=== PATIENT | female | born 1985 | race Caucasian/White ===

== ENCOUNTER 2016-11-25 13:19 | Observation (INO) | payer OTHER ==
[~2016-11-25] VITALS: Ht 165.1 cm; Wt 138.0 kg
[~2016-11-25 13:19] MED LIST: ACET325T14 PO; ARIP2TAB PO; BIRTH CONTROL PILL PO; CIPR500T87 PO; DIAZ5TAB PO; DISU250T2 PO; FLUO20CA19 PO; HYDR-3138 PO; METO10TA82 PO; Metronidazole PO; NAPR500T3 PO; ONDA4TAB7 PO; OXYC1TAB8 PO; PNV11TAB5 PO; PROM25TA10 PO; RANI150T8 PO; TRAZ150T68 PO; TRAZ50TA18 PO; VENL150C PO; VENL37.52 PO; ZOLP-413 PO
[2016-11-25 13:57] LABS: DAU SCREEN DISCLAIMER
[2016-11-25] MEDS ORDERED: LORA-445 PO (14:13)
[2016-11-25 14:34] LABS: BLOOD UREA NITROGEN 11 mg/dL (7-18)
[2016-11-25 14:50] LABS: ACETAMINOPHEN < 2 mcg/mL (10-30)
[2016-11-25 16:00] VITALS: BP 117/82
[2016-11-25] MEDS ORDERED: HALOPERIDOL 5 MG/ML IM PRN (16:00)
[2016-11-25] MEDS ORDERED: ACETAMINOPHEN 500 MG TABLET PO PRN (17:30)
[2016-11-25] MEDS ORDERED: TRAZODONE 50MG TABLET PO SCH (21:00)
[2016-11-26] MEDS ORDERED: FLUOXETINE 20 MG CAPSULE PO SCH ×2 (09:00)
== END 2016-11-25 19:52 ==
LOC: ED 15:30 → INTOOBSV 15:31 → EDIP 15:31 → SUATTDRO 15:35 → ED 15:50 → 3E 16:35
PROVIDERS: ADMIT Internal Medicine; ATTEND Internal Medicine
DX: S61.511A Laceration without foreign body of right wrist, initial encounter (principal); F32.9 Major depressive disorder, single episode, unspecified; D72.829 Elevated white blood cell count, unspecified; E66.01 Morbid (severe) obesity due to excess calories; Z79.899 Other long term (current) drug therapy; Z91.14 Patient's other noncompliance with medication regimen; X78.9XXA Intentional self-harm by unspecified sharp object, initial encounter; Y93.89 Activity, other specified; Y92.89 Other specified places as the place of occurrence of the external cause; Y99.8 Other external cause status
CPT/HCPCS: 36415; 71010; 80048; 80307; 80329; 81003; 82040; 85025; 93005; 99285; G0378; G0480

== ENCOUNTER 2017-03-28 05:22 | Emergency (ER) | payer OTHER ==
[~2017-03-28] VITALS: Ht 165.1 cm; Wt 140.3 kg
[~2017-03-28 05:22] MED LIST changes: -ARIP2TAB PO; +ARIP2TAB2 PO; -HYDR-3138 PO; +HYDR-3237 PO; +LORA-445 PO; -NAPR500T3 PO; +NAPR500T4 PO; +TRAZ150T62 PO; -TRAZ150T68 PO
[2017-03-28] MEDS ORDERED: DIAZEPAM 5 MG TABLET ONE (05:49)
[2017-03-28] MEDS ORDERED: OXYcodone/APAP 10/325MG TABLET ONE (05:49)
[2017-03-28] MEDS ORDERED: OXYcodone/APAP 10/325MG TABLET PO ONE (06:00)
[2017-03-28] MEDS ORDERED: DIAZEPAM 5 MG TABLET PO ONE (06:00)
[2017-03-28 06:45] VITALS: BP 117/66
== END 2017-03-28 08:50 | disposition home or self-care (01) ==
LOC: ED 08:16
DX: S16.1XXA Strain of muscle, fascia and tendon at neck level, initial encounter (principal); Z88.6 Allergy status to analgesic agent; Z90.49 Acquired absence of other specified parts of digestive tract; V89.2XXA Person injured in unspecified motor-vehicle accident, traffic, initial encounter; Y93.89 Activity, other specified; Y99.8 Other external cause status; Y92.410 Unspecified street and highway as the place of occurrence of the external cause
CPT/HCPCS: 70450; 72125; 99284

== ENCOUNTER 2017-07-27 17:35 | Emergency (ER) | payer OTHER ==
[~2017-07-27] VITALS: Ht 165.1 cm; Wt 138.3 kg
[~2017-07-27 17:35] MED LIST changes: +NAPR-685 PO; -NAPR500T4 PO
[2017-07-27 18:14] LABS: BASOPHILS # (AUTO) 0.11 x10^3/uL (0-0.1); BASOPHILS % (AUTO) 1 % (0-1); EOSINOPHILS # (AUTO) 0.25 x10^3/uL (0-0.4); EOSINOPHILS % (AUTO) 2 % (1-7); LYMPHOCYTES % (AUTO) 24 % (22-44); MD NO; MEAN CORPUSCULAR HEMOGLOBIN 25.2 pg (27.0-34.8); MEAN CORPUSCULAR VOLUME 76.4 fL (80-100); MEAN PLATELET VOLUME 8.5 fL (7.4-10.4); MONOCYTES # (AUTO) 0.74 x10^3/uL (0.2-0.8); MONOCYTES % (AUTO) 7 % (2-9); NEUTROPHILS # (AUTO) 7.05 x10^3/uL (1.8-6.8); NEUTROPHILS % (AUTO) 66 % (42-75); PLATELET COUNT 328 x10^3/uL (130-400); RED BLOOD COUNT 4.67 x10^6/uL (3.82-5.3); RED CELL DISTRIBUTION WIDTH 17.8 % (9.6-15.2)
[2017-07-27 18:17] LABS: ALANINE AMINOTRANSFERASE 22 U/L (12-78); ALBUMIN 3.6 g/dL (3.4-5.0); ANION GAP 10 mmol/L (5-15); CALCIUM 9.4 mg/dL (8.5-10.1); CHLORIDE 105 mmol/L (98-107); CREATININE 1.23 mg/dL (0.55-1.02)
[2017-07-27 18:20] LABS: ALKALINE PHOSPHATASE 76 U/L (45-117); BILIRUBIN,TOTAL 0.2 mg/dL (0.2-1.0)
[2017-07-27] MEDS ORDERED: BUPR150T73 PO (19:05)
[2017-07-27] MEDS ORDERED: RANI75TA12 PO (19:05)
[2017-07-27] MEDS ORDERED: LURA40TA PO (19:05)
[2017-07-27 19:07] VITALS: BP 125/67
[2017-07-27 19:19] LABS: MICROSCOPIC AUTO
[2017-07-27 19:20] LABS: CULTURE INDICATED? YES
[2017-07-27] MEDS ORDERED: NITROFURANTOIN (MACROBID) 100 MG CAPSULE ONE (19:53)
[2017-07-27] MEDS ORDERED: NITROFURANTOIN (MACROBID) 100 MG CAPSULE PO ONE (20:00)
== END 2017-07-27 21:11 | disposition home or self-care (01) ==
LOC: ED 20:45
DX: N30.90 Cystitis, unspecified without hematuria (principal); F31.9 Bipolar disorder, unspecified; Z90.710 Acquired absence of both cervix and uterus; Z88.6 Allergy status to analgesic agent
CPT/HCPCS: 36415; 76700; 80053; 81001; 83690; 85025; 87086; 99285

== ENCOUNTER 2017-08-17 18:13 | Emergency (ER) | payer OTHER ==
[~2017-08-17] VITALS: Ht 165.1 cm; Wt 138.3 kg
[~2017-08-17 18:13] MED LIST changes: +BUPR150T73 PO; +LURA40TA PO; +RANI150T23 PO; -RANI150T8 PO; +RANI75TA12 PO; +[UNRECOGNIZED DRUG - OTHER] PO
[2017-08-17 19:05] LABS: BASOPHILS # (AUTO) 0.05 x10^3/uL (0-0.1); BASOPHILS % (AUTO) 1 % (0-1); EOSINOPHILS # (AUTO) 0.09 x10^3/uL (0-0.4); EOSINOPHILS % (AUTO) 1 % (1-7); LYMPHOCYTES # (AUTO) 2.69 x10^3/uL (1-3.4); LYMPHOCYTES % (AUTO) 27 % (22-44); MD NO; MEAN CORPUSCULAR HEMOGLOBIN 25.4 pg (27.0-34.8); MEAN CORPUSCULAR VOLUME 76.8 fL (80-100); MEAN PLATELET VOLUME 8.5 fL (7.4-10.4); MONOCYTES # (AUTO) 0.73 x10^3/uL (0.2-0.8); MONOCYTES % (AUTO) 7 % (2-9); NEUTROPHILS # (AUTO) 6.31 x10^3/uL (1.8-6.8); NEUTROPHILS % (AUTO) 64 % (42-75); PLATELET COUNT 311 x10^3/uL (130-400); RED BLOOD COUNT 4.75 x10^6/uL (3.82-5.3); RED CELL DISTRIBUTION WIDTH 18.2 % (9.6-15.2)
[2017-08-17 19:10] LABS: ALBUMIN 3.7 g/dL (3.4-5.0); ANION GAP 8 mmol/L (5-15); CALCIUM 9.3 mg/dL (8.5-10.1); CHLORIDE 107 mmol/L (98-107)
[2017-08-17 19:14] LABS: ALANINE AMINOTRANSFERASE 25 U/L (12-78); ALKALINE PHOSPHATASE 72 U/L (45-117); BILIRUBIN,TOTAL 0.2 mg/dL (0.2-1.0); CREATININE 1.09 mg/dL (0.55-1.02); TOTAL PROTEIN 7.7 g/dL (6.4-8.2)
[2017-08-17 19:25] LABS: CULTURE INDICATED? YES; MICROSCOPIC INDICATED
[2017-08-17 21:43] VITALS: BP 1/82
== END 2017-08-17 21:46 | disposition home or self-care (01) ==
LOC: ED 21:40
DX: N30.00 Acute cystitis without hematuria (principal); F31.9 Bipolar disorder, unspecified; F43.10 Post-traumatic stress disorder, unspecified; Z90.710 Acquired absence of both cervix and uterus
CPT/HCPCS: 36415; 74176; 80053; 81001; 85025; 87086; 99285

== ENCOUNTER 2017-09-27 06:56 | Day surgery (SDC) | payer OTHER ==
[2017-09-26 13:57] VITALS: BP 121/82
[~2017-09-27] VITALS: Ht 165.1 cm; Wt 135.0 kg
[~2017-09-27 06:56] MED LIST changes: +CEPH-376 PO; +ZALE10CA PO
[2017-09-27] MEDS ORDERED: LACTATED RINGERS 1,000 ML IV SCH (07:28)
[2017-09-27 07:30] VITALS: BP 121/82
[2017-09-27] MEDS ORDERED: LIDOCAINE-MPF 1%, 2ML INFIL ONE (07:30)
[2017-09-27] MEDS ORDERED: MIDAZOLAM 1 MG/ML, 2ML ONE (09:18)
== END 2017-09-27 11:15 ==
LOC: OUT 06:56
PROVIDERS: ATTEND Internal Medicine Gastroenterology
DX: K29.50 Unspecified chronic gastritis without bleeding (principal); K63.5 Polyp of colon; K57.30 Diverticulosis of large intestine without perforation or abscess without bleeding; K64.8 Other hemorrhoids; F41.9 Anxiety disorder, unspecified; F32.9 Major depressive disorder, single episode, unspecified; E66.01 Morbid (severe) obesity due to excess calories; Z68.42 Body mass index [BMI] 45.0-49.9, adult; Z79.82 Long term (current) use of aspirin; Z91.018 Allergy to other foods; Z90.710 Acquired absence of both cervix and uterus; Z72.89 Other problems related to lifestyle
CPT/HCPCS: 43239; 45385; 88305; J2250; J3490; J7120

== ENCOUNTER 2017-12-27 15:37 | Emergency (ER) | payer OTHER ==
[~2017-12-27] VITALS: Ht 165.1 cm; Wt 137.0 kg
[~2017-12-27 15:37] MED LIST changes: +TRAZ-136 PO; -TRAZ50TA18 PO
[2017-12-27] MEDS ORDERED: BUPR-86 PO (15:47)
[2017-12-27] MEDS ORDERED: LURA40TA PO (15:48)
[2017-12-27 16:28] LABS: BASOPHILS # (AUTO) 0.01 x10^3/uL (0-0.1); BASOPHILS % (AUTO) 0 % (0-1); EOSINOPHILS # (AUTO) 0.08 x10^3/uL (0-0.4); EOSINOPHILS % (AUTO) 1 % (1-7); LYMPHOCYTES # (AUTO) 2.17 x10^3/uL (1-3.4); LYMPHOCYTES % (AUTO) 24 % (22-44); MD NO; MEAN CORPUSCULAR HEMOGLOBIN 26.4 pg (27.0-34.8); MEAN CORPUSCULAR HGB CONC 33.4 g/dL (32.4-35.8); MEAN PLATELET VOLUME 8.4 fL (7.4-10.4); MONOCYTES # (AUTO) 0.57 x10^3/uL (0.2-0.8); MONOCYTES % (AUTO) 6 % (2-9); NEUTROPHILS # (AUTO) 6.38 x10^3/uL (1.8-6.8); NEUTROPHILS % (AUTO) 69 % (42-75); PLATELET COUNT 268 x10^3/uL (130-400); RED BLOOD COUNT 4.47 x10^6/uL (3.82-5.3); RED CELL DISTRIBUTION WIDTH 16.7 % (9.6-15.2)
[2017-12-27] MEDS ORDERED: KETOROLAC 30 MG/1 ML ONE (16:29)
[2017-12-27] MEDS ORDERED: MAALOX/HYOSCYAMINE/LIDOCAINE 45 ML BTL ONE (16:29)
[2017-12-27] MEDS ORDERED: KETOROLAC 30 MG/1 ML IVPush ONE (16:30)
[2017-12-27] MEDS ORDERED: MAALOX/HYOSCYAMINE/LIDOCAINE 45 ML BTL PO ONE (16:30)
[2017-12-27 16:37] LABS: PROTHROMBIN TIME 10.4 Seconds (9.6-11.5)
[2017-12-27 16:39] LABS: ALANINE AMINOTRANSFERASE 20 U/L (12-78); ALBUMIN 3.5 g/dL (3.4-5.0); ANION GAP 4 mmol/L (5-15); CALCIUM 9.4 mg/dL (8.5-10.1); CHLORIDE 106 mmol/L (98-107); CREATININE 1.07 mg/dL (0.55-1.02)
[2017-12-27 16:43] LABS: ALKALINE PHOSPHATASE 70 U/L (45-117); BILIRUBIN,TOTAL 0.2 mg/dL (0.2-1.0); TOTAL PROTEIN 7.5 g/dL (6.4-8.2); TROPONIN I < 0.015 ng/mL (0.000-0.045)
[2017-12-27 18:28] VITALS: BP 120/68
== END 2017-12-27 18:35 | disposition home or self-care (01) ==
LOC: ED 18:05
DX: R07.89 Other chest pain (principal); F41.1 Generalized anxiety disorder; F31.9 Bipolar disorder, unspecified; Z90.710 Acquired absence of both cervix and uterus; Z90.721 Acquired absence of ovaries, unilateral
CPT/HCPCS: 36415; 71045; 80053; 83880; 84484; 85025; 85610; 93005; 96374; 99285; J1885

== ENCOUNTER 2018-01-28 21:10 | Emergency (ER) | payer OTHER ==
[~2018-01-28] VITALS: Ht 165.1 cm; Wt 134.3 kg
[~2018-01-28 21:10] MED LIST changes: +BUPR-86 PO
[2018-01-28 21:13] VITALS: BP 120/82
[2018-01-28 21:48] LABS: BASOPHILS # (AUTO) 0.03 x10^3/uL (0-0.1); BASOPHILS % (AUTO) 0 % (0-1); EOSINOPHILS # (AUTO) 0.08 x10^3/uL (0-0.4); EOSINOPHILS % (AUTO) 1 % (1-7); LYMPHOCYTES # (AUTO) 2.58 x10^3/uL (1-3.4); LYMPHOCYTES % (AUTO) 28 % (22-44); MD NO; MEAN CORPUSCULAR HGB CONC 33.2 g/dL (32.4-35.8); MEAN CORPUSCULAR VOLUME 78.2 fL (80-100); MEAN PLATELET VOLUME 8.1 fL (7.4-10.4); MONOCYTES # (AUTO) 0.44 x10^3/uL (0.2-0.8); MONOCYTES % (AUTO) 5 % (2-9); NEUTROPHILS # (AUTO) 6.13 x10^3/uL (1.8-6.8); NEUTROPHILS % (AUTO) 66 % (42-75); PLATELET COUNT 297 x10^3/uL (130-400); RED BLOOD COUNT 4.43 x10^6/uL (3.82-5.3); RED CELL DISTRIBUTION WIDTH 16.6 % (9.6-15.2)
[2018-01-28] MEDS ORDERED: ONDANSETRON 2MG/ML, 2ML IVPush ONE (22:00)
[2018-01-28] MEDS ORDERED: SODIUM CHLORIDE 0.9% 1,000ML IVBOLUS ONE (22:00)
[2018-01-28] MEDS ORDERED: MAALOX/HYOSCYAMINE/LIDOCAINE 45 ML BTL PO ONE (22:00)
[2018-01-28 22:01] LABS: ALANINE AMINOTRANSFERASE 20 U/L (12-78); ALBUMIN 3.3 g/dL (3.4-5.0); ANION GAP 5 mmol/L (5-15); CHLORIDE 106 mmol/L (98-107); CREATININE 0.94 mg/dL (0.55-1.02)
[2018-01-28 22:06] LABS: ALKALINE PHOSPHATASE 74 U/L (45-117); BILIRUBIN,TOTAL 0.2 mg/dL (0.2-1.0); TOTAL PROTEIN 7.5 g/dL (6.4-8.2)
[2018-01-28] MEDS ORDERED: MAALOX/HYOSCYAMINE/LIDOCAINE 45 ML BTL ONE (22:15)
[2018-01-28] MEDS ORDERED: ONDANSETRON 2MG/ML, 2ML ONE (22:16)
[2018-01-28 22:41] LABS: CULTURE INDICATED? YES; MICROSCOPIC INDICATED
== END 2018-01-28 23:52 | disposition home or self-care (01) ==
LOC: ED 23:15
DX: J35.1 Hypertrophy of tonsils (principal); R11.2 Nausea with vomiting, unspecified; E86.0 Dehydration; F31.9 Bipolar disorder, unspecified
CPT/HCPCS: 36415; 80053; 81001; 83690; 84703; 85025; 87077; 87086; 96374; 99284; J2405; J7030; 87186

== ENCOUNTER 2018-02-02 11:18 | Emergency (ER) | payer OTHER ==
[~2018-02-02] VITALS: Ht 165.1 cm; Wt 131.5 kg
[2018-02-02] MEDS ORDERED: HYDROcodone/APAP 5/325 TABLET PO ONE (11:30)
[2018-02-02] MEDS ORDERED: HYDROcodone/APAP 5/325 TABLET ONE (11:36)
[2018-02-02 12:11] LABS: BASOPHILS # (AUTO) 0.03 x10^3/uL (0-0.1); BASOPHILS % (AUTO) 0 % (0-1); EOSINOPHILS # (AUTO) 0.04 x10^3/uL (0-0.4); EOSINOPHILS % (AUTO) 1 % (1-7); LYMPHOCYTES # (AUTO) 2.03 x10^3/uL (1-3.4); LYMPHOCYTES % (AUTO) 25 % (22-44); MD NO; MEAN CORPUSCULAR HEMOGLOBIN 25.8 pg (27.0-34.8); MEAN CORPUSCULAR HGB CONC 32.6 g/dL (32.4-35.8); MEAN CORPUSCULAR VOLUME 79.1 fL (80-100); MEAN PLATELET VOLUME 8.6 fL (7.4-10.4); MONOCYTES # (AUTO) 0.45 x10^3/uL (0.2-0.8); MONOCYTES % (AUTO) 6 % (2-9); NEUTROPHILS # (AUTO) 5.46 x10^3/uL (1.8-6.8); NEUTROPHILS % (AUTO) 68 % (42-75); PLATELET COUNT 298 x10^3/uL (130-400); RED BLOOD COUNT 4.66 x10^6/uL (3.82-5.3); RED CELL DISTRIBUTION WIDTH 16.8 % (9.6-15.2)
[2018-02-02 12:24] LABS: ALBUMIN 3.3 g/dL (3.4-5.0); ANION GAP 8 mmol/L (5-15); CALCIUM 9.1 mg/dL (8.5-10.1); CHLORIDE 108 mmol/L (98-107)
[2018-02-02 12:26] LABS: CREATININE 0.96 mg/dL (0.55-1.02)
[2018-02-02 13:00] VITALS: BP 107/65
== END 2018-02-02 14:27 | disposition home or self-care (01) ==
LOC: ED 13:00
DX: M79.662 Pain in left lower leg (principal); M79.661 Pain in right lower leg; F31.9 Bipolar disorder, unspecified; F43.10 Post-traumatic stress disorder, unspecified; F41.1 Generalized anxiety disorder; X50.9XXA Other and unspecified overexertion or strenuous movements or postures, initial encounter; Y93.89 Activity, other specified; Y99.8 Other external cause status; Y92.89 Other specified places as the place of occurrence of the external cause
CPT/HCPCS: 36415; 80048; 82040; 85025; 93970; 99285

== ENCOUNTER 2018-04-04 12:40 | Emergency (ER) | payer OTHER ==
[~2018-04-04] VITALS: Ht 165.1 cm; Wt 137.0 kg
[~2018-04-04 12:40] MED LIST changes: -TRAZ-136 PO; +TRAZ50TA66 PO
[2018-04-04 13:28] LABS: MICROSCOPIC AUTO
[2018-04-04 13:38] LABS: CULTURE INDICATED? YES
[2018-04-04 13:58] VITALS: BP 124/78
[2018-04-04 14:19] LABS: BASOPHILS # (AUTO) 0.02 x10^3/uL (0-0.1); BASOPHILS % (AUTO) 0 % (0-1); EOSINOPHILS # (AUTO) 0.09 x10^3/uL (0-0.4); EOSINOPHILS % (AUTO) 1 % (1-7); LYMPHOCYTES # (AUTO) 2.33 x10^3/uL (1-3.4); LYMPHOCYTES % (AUTO) 29 % (22-44); MD NO; MEAN CORPUSCULAR HEMOGLOBIN 25.5 pg (27.0-34.8); MEAN CORPUSCULAR HGB CONC 32.4 g/dL (32.4-35.8); MEAN CORPUSCULAR VOLUME 78.8 fL (80-100); MEAN PLATELET VOLUME 8.5 fL (7.4-10.4); MONOCYTES # (AUTO) 0.49 x10^3/uL (0.2-0.8); MONOCYTES % (AUTO) 6 % (2-9); NEUTROPHILS # (AUTO) 5.01 x10^3/uL (1.8-6.8); NEUTROPHILS % (AUTO) 63 % (42-75); PLATELET COUNT 309 x10^3/uL (130-400); RED BLOOD COUNT 4.63 x10^6/uL (3.82-5.3); RED CELL DISTRIBUTION WIDTH 16.4 % (9.6-15.2)
[2018-04-04 14:23] LABS: ALBUMIN 3.4 g/dL (3.4-5.0); ANION GAP 7 mmol/L (5-15); CHLORIDE 106 mmol/L (98-107)
[2018-04-04 14:28] LABS: ALANINE AMINOTRANSFERASE 22 U/L (12-78); ALKALINE PHOSPHATASE 76 U/L (45-117); BILIRUBIN,TOTAL 0.2 mg/dL (0.2-1.0); CREATININE 0.93 mg/dL (0.55-1.02); TOTAL PROTEIN 7.6 g/dL (6.4-8.2)
== END 2018-04-04 15:22 | disposition home or self-care (01) ==
LOC: ED 13:21
DX: N10 Acute pyelonephritis (principal); C25.9 Malignant neoplasm of pancreas, unspecified; F31.9 Bipolar disorder, unspecified; F43.10 Post-traumatic stress disorder, unspecified; F41.1 Generalized anxiety disorder; Z90.710 Acquired absence of both cervix and uterus
CPT/HCPCS: 36415; 74176; 80053; 81001; 83605; 83690; 85025; 87077; 87086; 87186; 99284

== ENCOUNTER 2018-05-14 18:55 | Emergency (ER) | payer OTHER ==
[~2018-05-14] VITALS: Ht 165.1 cm; Wt 140.0 kg
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
[2018-05-14] MEDS ORDERED: ONDANSETRON 2MG/ML, 2ML IVPush ONE (19:30)
[2018-05-14] MEDS ORDERED: SODIUM CHLORIDE FLUSH 10ML SYR IVF ONE (19:30)
[2018-05-14 19:34] LABS: BASOPHILS # (AUTO) 0.04 x10^3/uL (0-0.1); BASOPHILS % (AUTO) 1 % (0-1); EOSINOPHILS # (AUTO) 0.08 x10^3/uL (0-0.4); EOSINOPHILS % (AUTO) 1 % (1-7); LYMPHOCYTES # (AUTO) 2.82 x10^3/uL (1-3.4); LYMPHOCYTES % (AUTO) 35 % (22-44); MD NO; MEAN CORPUSCULAR HEMOGLOBIN 25.8 pg (27.0-34.8); MEAN CORPUSCULAR HGB CONC 33.1 g/dL (32.4-35.8); MEAN CORPUSCULAR VOLUME 77.8 fL (80-100); MEAN PLATELET VOLUME 8.3 fL (7.4-10.4); MONOCYTES # (AUTO) 0.53 x10^3/uL (0.2-0.8); MONOCYTES % (AUTO) 7 % (2-9); NEUTROPHILS # (AUTO) 4.65 x10^3/uL (1.8-6.8); NEUTROPHILS % (AUTO) 57 % (42-75); PLATELET COUNT 292 x10^3/uL (130-400); RED BLOOD COUNT 4.38 x10^6/uL (3.82-5.3); RED CELL DISTRIBUTION WIDTH 16.6 % (9.6-15.2)
[2018-05-14] MEDS ORDERED: ONDANSETRON 2MG/ML, 2ML ONE (19:39)
[2018-05-14] MEDS ORDERED: MORPHINE SULFATE 4 MG/ML, 1ML ONE ×2 (19:39→21:09)
[2018-05-14 19:44] LABS: ALANINE AMINOTRANSFERASE 18 U/L (12-78); ALBUMIN 3.5 g/dL (3.4-5.0); ANION GAP 8 mmol/L (5-15); CALCIUM 9.5 mg/dL (8.5-10.1); CHLORIDE 104 mmol/L (98-107); CREATININE 1.04 mg/dL (0.55-1.02)
[2018-05-14 19:46] LABS: ALKALINE PHOSPHATASE 74 U/L (45-117); BILIRUBIN,TOTAL 0.2 mg/dL (0.2-1.0); TOTAL PROTEIN 7.4 g/dL (6.4-8.2)
[2018-05-14 19:47] VITALS: BP 112/71
[2018-05-14] MEDS: MORPHINE SULFATE 4 MG/ML, 1ML IVPush PRN ×2 (19:47→21:16)
--- NOTE | 2018-05-14 20:00 | NUR ---
PT DESAT TO MID 80'S AFTER MORPHINE ADMIN. THIS RN ADMIN 2 L NC AND SAT OF 92-97%.
--- NOTE | 2018-05-14 20:07 | NUR ---
PT TO IMAGING.
[2018-05-14] MEDS ORDERED: OMNIPAQUE 350 MG/ML, 100ML BOTTLE ONE (20:10)
--- NOTE | 2018-05-14 20:12 | NUR ---
SBAR report received from [facility]NR[facility]. Pt in imaging at this time.
--- NOTE | 2018-05-14 21:10 | NUR ---
Pt ambulated to bathroom, urine sample requested.
--- NOTE | 2018-05-14 21:16 | NUR ---
Pt back to room from bathroom, urine sample collected and sent to lab. Dr. Arndt at bedside to evaluate pt.
--- NOTE | 2018-05-14 21:17 | NUR ---
Pt medicated per MAR.
[2018-05-14 21:26] LABS: MICROSCOPIC AUTO
[2018-05-14 21:28] LABS: CULTURE INDICATED? YES
--- NOTE | 2018-05-14 22:02 | NUR ---
Patient/Caregiver given discharge instructions and they have confirmed that they understand the instructions. Patient ambulatory with steady gait.
[2018-05-15] MEDS ORDERED: PANT40TA5 PO (08:42)
[2018-05-15] MEDS ORDERED: TRAZ-137 PO (08:42)
[2018-05-15] MEDS ORDERED: BUPR-86 PO (08:42)
== END 2018-05-14 22:04 | disposition home or self-care (01) ==
LOC: ED 19:27
DX: N30.00 Acute cystitis without hematuria (principal); R10.32 Left lower quadrant pain; K21.9 Gastro-esophageal reflux disease without esophagitis; F31.9 Bipolar disorder, unspecified; F41.1 Generalized anxiety disorder; Z90.710 Acquired absence of both cervix and uterus
CPT/HCPCS: 36415; 74177; 80053; 81001; 83690; 85025; 87086; 96374; 96375; 96376; 99284; J2405; Q9967

== ENCOUNTER 2018-05-15 08:31 | Emergency (ER) | payer OTHER ==
[~2018-05-15] VITALS: Ht 165.1 cm; Wt 137.0 kg
--- NOTE | 2018-05-15 08:38 | NUR ---
PT BIB [facility] D/T SYNCOPAL EPISODE AT WORK. PT ALSO HAS COMPLAINTS OF 8/10 SORENSON AT THIS TIME. +PHOTOSENSITIVITY. PT WAS SEEN IN ED LAST NIGHT FOR RIGHT SIDED ABD PAIN. PT WAS DIAGNOSED WITH A "KIDNEY INFECTION" AND WAS SENT HOME WITH PAIN MEDS AND ABX. PT BRADYCARDIC, 49. PT DENIES HX OF BRADYCARDIA. BS 91.
[2018-05-15] MEDS ORDERED: BUPR-86 PO (08:42)
[2018-05-15] MEDS ORDERED: TRAZ-137 PO (08:42)
[2018-05-15] MEDS ORDERED: PANT40TA5 PO (08:42)
--- NOTE | 2018-05-15 08:44 | NUR ---
STEVEN PateJ AT BEDSIDE EVALUATING PT.
[2018-05-15] MEDS ORDERED: METHOCARBAMOL 750 MG TABLET ONE (08:51)
[2018-05-15] MEDS ORDERED: KETOROLAC 30 MG/1 ML ONE (08:52)
[2018-05-15] MEDS ORDERED: METOCLOPRAMIDE 10MG TABLET ONE (08:52)
--- NOTE | 2018-05-15 08:56 | NUR ---
PT MEDICATED PER EMAR. PT BEING TRANSPORTED TO [facility].
[2018-05-15] MEDS ORDERED: KETOROLAC 30 MG/1 ML IM ONE (09:00)
[2018-05-15] MEDS ORDERED: METOCLOPRAMIDE 10MG TABLET PO ONE (09:00)
[2018-05-15] MEDS ORDERED: METHOCARBAMOL 750 MG TABLET PO ONE (09:00)
--- NOTE | 2018-05-15 09:20 | NUR ---
PT RESTING ON GURNEY. BEAR HUGGER WARMER PROVIDED TO PT. RN ENCOURAGED PT TO DRINK WATER THAT WAS PROVIDED TO HER. HYPOTENSION NOTED. RN TO INFORM PROVIDER.
[2018-05-15 09:40] LABS: BASOPHILS # (AUTO) 0.02 x10^3/uL (0-0.1); BASOPHILS % (AUTO) 0 % (0-1); EOSINOPHILS # (AUTO) 0.09 x10^3/uL (0-0.4); EOSINOPHILS % (AUTO) 2 % (1-7); LYMPHOCYTES # (AUTO) 1.87 x10^3/uL (1-3.4); LYMPHOCYTES % (AUTO) 31 % (22-44); MD NO; MEAN CORPUSCULAR HEMOGLOBIN 25.3 pg (27.0-34.8); MEAN CORPUSCULAR HGB CONC 32.7 g/dL (32.4-35.8); MEAN CORPUSCULAR VOLUME 77.4 fL (80-100); MEAN PLATELET VOLUME 8.3 fL (7.4-10.4); MONOCYTES # (AUTO) 0.38 x10^3/uL (0.2-0.8); MONOCYTES % (AUTO) 6 % (2-9); NEUTROPHILS % (AUTO) 61 % (42-75); PLATELET COUNT 319 x10^3/uL (130-400); RED BLOOD COUNT 4.73 x10^6/uL (3.82-5.3); RED CELL DISTRIBUTION WIDTH 16.6 % (9.6-15.2)
[2018-05-15 09:43] LABS: ALBUMIN 3.8 g/dL (3.4-5.0); ANION GAP 6 mmol/L (5-15); CALCIUM 9.4 mg/dL (8.5-10.1); CHLORIDE 103 mmol/L (98-107)
[2018-05-15 09:47] LABS: TROPONIN I < 0.015 ng/mL (0.000-0.045)
--- NOTE | 2018-05-15 10:07 | NUR ---
PT AMBULATED TO RESTROOM WITH A STEADY GAIT.
[2018-05-15 10:30] VITALS: BP 101/49
--- NOTE | 2018-05-15 10:31 | NUR ---
PT DISCHARGED HOME IN A STABLE CONDITION. DC INSTRUCTIONS WERE DISCUSSED WITH PT. PT VERBALIZED UNDERSTANDING. NO FURTHER QUESTIONS OR CONCERNS WERE EXPRESSED AT THAT TIME. PT AMBULATED WITH RN AND TO DC DESK. STEADY GAIT.
== END 2018-05-15 10:32 | disposition home or self-care (01) ==
LOC: ED 08:51
DX: G44.211 Episodic tension-type headache, intractable (principal); Z90.710 Acquired absence of both cervix and uterus; F31.9 Bipolar disorder, unspecified; F41.1 Generalized anxiety disorder; K21.9 Gastro-esophageal reflux disease without esophagitis
CPT/HCPCS: 36415; 71046; 80048; 82040; 84484; 85025; 93005; 96372; 99284; J1885

== ENCOUNTER 2018-05-15 22:11 | Emergency (ER) | payer OTHER ==
[~2018-05-15] VITALS: Ht 165.1 cm; Wt 145.0 kg
[~2018-05-15 22:11] MED LIST changes: +PANT40TA5 PO; +TRAZ-137 PO
--- NOTE | 2018-05-15 22:25 | NUR ---
MD DE GUZMAN TO BEDSIDE FOR PT EVAL.
[2018-05-15] MEDS ORDERED: CEFTRIAXONE PMX 1GM/50ML 50 ML ONE (22:52)
[2018-05-15] MEDS ORDERED: CEFTRIAXONE PMX 1GM/50ML 50 ML IV ONE (23:00)
--- NOTE | 2018-05-15 23:10 | NUR ---
IV ATTEMPT X2 UNSUCCESSFUL, TERESO RN TO BEDSIDE FOR IV ATTEMPT.
--- NOTE | 2018-05-15 23:40 | NUR ---
ABX CONTINUE TO INFUSE. PT RESTING COMFORTABLY, PT SLEEPING AT TIMES. NO DISTRESS NOTED. REPORTS SORENSON IMPROVED WITH IBUPOFEN. WILL MONITOR.
--- NOTE | 2018-05-16 00:05 | NUR ---
report to [facility]illa for lunch relief.
--- NOTE | 2018-05-16 00:46 | NUR ---
REASSUMED CARE OF PT. PROVIDER TO BEDSIDE FOR PT UPDATE COMPLETE. AWAITING FURTHER ORDERS.
[2018-05-16] MEDS ORDERED: KETOROLAC 30 MG/1 ML ONE (00:52)
--- NOTE | 2018-05-16 00:58 | NUR ---
PT RECIEVED TORADOL PER ORDERS, SEE EMAR. ABX COMPLETE. AWAITING FURTHER ORDERS.
[2018-05-16] MEDS ORDERED: KETOROLAC 60 MG/2 ML IVPush ONE (01:00)
[2018-05-16 01:18] VITALS: BP 111/54
== END 2018-05-16 01:20 | disposition home or self-care (01) ==
LOC: ED 23:03
DX: R51 Headache (principal); N10 Acute pyelonephritis; Z90.710 Acquired absence of both cervix and uterus; F31.9 Bipolar disorder, unspecified; F43.10 Post-traumatic stress disorder, unspecified; K21.9 Gastro-esophageal reflux disease without esophagitis; Z88.6 Allergy status to analgesic agent
CPT/HCPCS: 96365; 96375; 99283; J0696; J1885

== ENCOUNTER 2018-06-26 15:02 | Emergency (ER) | payer OTHER ==
[~2018-06-26] VITALS: Ht 165.1 cm; Wt 136.7 kg
[2018-06-26 15:24] VITALS: BP 148/49
[2018-06-26 15:44] LABS: BASOPHILS # (AUTO) 0.04 x10^3/uL (0-0.1); BASOPHILS % (AUTO) 1 % (0-1); EOSINOPHILS # (AUTO) 0.11 x10^3/uL (0-0.4); EOSINOPHILS % (AUTO) 1 % (1-7); LYMPHOCYTES # (AUTO) 2.04 x10^3/uL (1-3.4); LYMPHOCYTES % (AUTO) 23 % (22-44); MD NO; MEAN CORPUSCULAR HEMOGLOBIN 25.4 pg (27.0-34.8); MEAN CORPUSCULAR HGB CONC 32.5 g/dL (32.4-35.8); MEAN CORPUSCULAR VOLUME 78.1 fL (80-100); MEAN PLATELET VOLUME 8.2 fL (7.4-10.4); MONOCYTES # (AUTO) 0.66 x10^3/uL (0.2-0.8); MONOCYTES % (AUTO) 7 % (2-9); NEUTROPHILS # (AUTO) 6.08 x10^3/uL (1.8-6.8); NEUTROPHILS % (AUTO) 68 % (42-75); PLATELET COUNT 328 x10^3/uL (130-400); RED CELL DISTRIBUTION WIDTH 16.6 % (9.6-15.2)
[2018-06-26 15:56] LABS: ALBUMIN 3.6 g/dL (3.4-5.0); ANION GAP 5 mmol/L (5-15); CALCIUM 9.3 mg/dL (8.5-10.1); CHLORIDE 105 mmol/L (98-107); CREATININE 0.97 mg/dL (0.55-1.02)
--- NOTE | 2018-06-26 17:57 | NUR ---
PT TO ROOM FROM LOBBY
--- NOTE | 2018-06-26 18:25 | NUR ---
PT TO US, UA SENT
--- NOTE | 2018-06-26 18:54 | NUR ---
PT BEDSIDE REPORT FROM [facility]. THIS RN TO ASSUME CARE OF PT. ALL RESULTS BACK. PT UP FOR RECHECK.
== END 2018-06-26 19:17 | disposition home or self-care (01) ==
LOC: ED 19:11
DX: K64.8 Other hemorrhoids (principal); F31.9 Bipolar disorder, unspecified; F43.10 Post-traumatic stress disorder, unspecified; Z90.710 Acquired absence of both cervix and uterus; K21.9 Gastro-esophageal reflux disease without esophagitis
CPT/HCPCS: 36415; 80048; 82040; 85025; 99284

== ENCOUNTER 2018-09-11 10:38 | Emergency (ER) | payer OTHER ==
[~2018-09-11] VITALS: Ht 165.1 cm; Wt 141.0 kg
[2018-09-11 10:41] VITALS: BP 140/75
[2018-09-11] MEDS ORDERED: CETI10TA24 PO (11:05)
[2018-09-11] MEDS ORDERED: LORA10TA72 PO (11:05)
== END 2018-09-11 11:43 | disposition home or self-care (01) ==
LOC: ED 11:16
DX: S63.641A Sprain of metacarpophalangeal joint of right thumb, initial encounter (principal); X58.XXXA Exposure to other specified factors, initial encounter; Y93.89 Activity, other specified; Y92.89 Other specified places as the place of occurrence of the external cause; Y99.8 Other external cause status
CPT/HCPCS: 29125; 99283

== ENCOUNTER 2018-11-17 17:33 | Emergency (ER) | payer OTHER ==
[~2018-11-17] VITALS: Ht 165.1 cm; Wt 143.7 kg
[2018-11-17 19:25] VITALS: BP 114/68
== END 2018-11-17 19:29 | disposition home or self-care (01) ==
LOC: ED 18:20
DX: R07.89 Other chest pain (principal); G44.219 Episodic tension-type headache, not intractable; K21.9 Gastro-esophageal reflux disease without esophagitis; F41.1 Generalized anxiety disorder; F31.9 Bipolar disorder, unspecified; F43.10 Post-traumatic stress disorder, unspecified; Z90.710 Acquired absence of both cervix and uterus; Z90.721 Acquired absence of ovaries, unilateral
CPT/HCPCS: 71045; 93005; 96372; 99283; J1885; Q0162

== ENCOUNTER 2019-03-14 20:17 | Emergency (ER) | payer OTHER ==
[~2019-03-14] VITALS: Ht 165.1 cm; Wt 146.0 kg
[~2019-03-14 20:17] MED LIST changes: +CETI10TA24 PO; +LORA10TA72 PO; +RANI-244 PO; +RANI-467 PO; -RANI150T23 PO; -RANI75TA12 PO
[2019-03-14] MEDS ORDERED: HYDR25CA PO (21:23)
[2019-03-14] MEDS ORDERED: ONDANSETRON ODT 4 MG ONE (21:56)
[2019-03-14] MEDS ORDERED: ONDANSETRON ODT 4 MG PO ONE (22:00)
--- NOTE | 2019-03-14 22:03 | NUR ---
THIS 33 YOF C/O N/V AND LOWER ABD PAIN S/P EATING AT [employer]. PT REPORTS WHILE THROWING UP NOTICED A "LARGE AMOUNT OF BLOOD IN THE WHOLE TOILET." PT DENIES HX OF SAME. PT CURRENTLY C/O NAUSEA, MEDICATED W/ ZOFRAN ORDERED. UPDATED ON POC INCLUDING PENDING TEST RESULTS AND CHART REVIEW BY ERP. PT PLACED ON MONITOR, CALL LIGHT IN HAND.
[2019-03-14 22:07] LABS: BASOPHILS # (AUTO) 0.03 x10^3/uL (0-0.1); BASOPHILS % (AUTO) 0 % (0-1); EOSINOPHILS # (AUTO) 0.06 x10^3/uL (0-0.4); EOSINOPHILS % (AUTO) 1 % (1-7); LYMPHOCYTES % (AUTO) 23 % (22-44); MD NO; MEAN CORPUSCULAR HEMOGLOBIN 26.4 pg (27.0-34.8); MEAN CORPUSCULAR HGB CONC 32.6 g/dL (32.4-35.8); MEAN CORPUSCULAR VOLUME 81.1 fL (80-100); MEAN PLATELET VOLUME 8.1 fL (7.4-10.4); MONOCYTES # (AUTO) 0.51 x10^3/uL (0.2-0.8); MONOCYTES % (AUTO) 5 % (2-9); NEUTROPHILS # (AUTO) 7.61 x10^3/uL (1.8-6.8); NEUTROPHILS % (AUTO) 71 % (42-75); PLATELET COUNT 287 x10^3/uL (130-400); RED CELL DISTRIBUTION WIDTH 16.2 % (9.6-15.2)
[2019-03-14 22:16] LABS: ALANINE AMINOTRANSFERASE 23 U/L (12-78); ALBUMIN 3.3 g/dL (3.4-5.0); ANION GAP 4 mmol/L (5-15); CALCIUM 9.3 mg/dL (8.5-10.1); CHLORIDE 104 mmol/L (98-107)
[2019-03-14 22:19] LABS: ALKALINE PHOSPHATASE 70 U/L (45-117); BILIRUBIN,TOTAL 0.2 mg/dL (0.2-1.0); CREATININE 1.04 mg/dL (0.55-1.02); TOTAL PROTEIN 7.4 g/dL (6.4-8.2)
[2019-03-14 22:20] VITALS: BP 110/63
--- NOTE | 2019-03-14 22:27 | NUR ---
PT REPORTS IS FEELING BETTER AFTER ZOFRAN. AWARE WAITING FOR CHART REVIEW BY ERP.
--- NOTE | 2019-03-14 22:38 | NUR ---
REVIEWED DISCHARGE INSTRUCTIONS AND PRESCRIPTIONS W/ PT, VERBALIZED UNDERSTANDING TO INFORMATION PROVIDED INCLUDING FOLLOW UP CARE, RETURN PRECAUTIONS AND MEDICATIONS. PT REPORTED FEELING BETTER AFTER ZOFRAN, DENIED C/O NAUSEA OR C/O PAIN AT TIME OF DISCHARGE. PT AMBULATED FROM ED W/ FRIEND.
== END 2019-03-14 22:41 | disposition home or self-care (01) ==
LOC: ED 22:02
DX: K29.00 Acute gastritis without bleeding (principal); K21.9 Gastro-esophageal reflux disease without esophagitis; F31.9 Bipolar disorder, unspecified; F41.1 Generalized anxiety disorder; Z90.710 Acquired absence of both cervix and uterus; Z90.721 Acquired absence of ovaries, unilateral
CPT/HCPCS: 36415; 80053; 83690; 85025; 99283; Q0162

== ENCOUNTER 2019-06-25 12:35 | Emergency (ER) | payer OTHER ==
[~2019-06-25] VITALS: Ht 165.1 cm; Wt 150.0 kg
[~2019-06-25 12:35] MED LIST changes: -CETI10TA24 PO; +CETI10TA26 PO; +HYDR25CA PO; -TRAZ-137 PO; +TRAZ-175 PO
--- NOTE | 2019-06-25 13:08 | NUR ---
SHASHA. REPORT RECEIVED FROM EMS. PT HAD DZY AROUND 10 AM AT WORK THEN CP/SOB STARTED AROUND 12PM WITH NUMBNESS/TINGLING FEELING ON BILATERAL TOES. HX OF ANXIETY AND BIPOLAR. DENIES CARDIAC HX. PT'S AOX4. RESPS EVEN AND UNLABORED. ALL MONITORS IN PLACE. CALL LIGHT WITHIN REACH. EKG DONE AT BEDSIDE BY EMT.
[2019-06-25 13:49] LABS: BASOPHILS # (AUTO) 0.04 x10^3/uL (0-0.1); BASOPHILS % (AUTO) 0 % (0-1); EOSINOPHILS % (AUTO) 1 % (1-7); LYMPHOCYTES # (AUTO) 2.27 x10^3/uL (1-3.4); LYMPHOCYTES % (AUTO) 24 % (22-44); MD NO; MEAN CORPUSCULAR HEMOGLOBIN 25.5 pg (27.0-34.8); MEAN CORPUSCULAR VOLUME 79.6 fL (80-100); MEAN PLATELET VOLUME 7.9 fL (7.4-10.4); MONOCYTES # (AUTO) 0.59 x10^3/uL (0.2-0.8); MONOCYTES % (AUTO) 6 % (2-9); NEUTROPHILS # (AUTO) 6.43 x10^3/uL (1.8-6.8); NEUTROPHILS % (AUTO) 68 % (42-75); PLATELET COUNT 314 x10^3/uL (130-400); RED BLOOD COUNT 4.82 x10^6/uL (3.82-5.3); RED CELL DISTRIBUTION WIDTH 16.5 % (9.6-15.2)
[2019-06-25] MEDS ORDERED: MAALOX/HYOSCYAMINE/LIDOCAINE 45 ML BTL ONE (13:56)
--- NOTE | 2019-06-25 13:59 | NUR ---
PT MEDICATED PER EMAR. PT TOLERATED WELL.
[2019-06-25] MEDS ORDERED: MAALOX/HYOSCYAMINE/LIDOCAINE 45 ML BTL PO ONE (14:00)
[2019-06-25 14:01] LABS: ALANINE AMINOTRANSFERASE 21 U/L (12-78); ALBUMIN 3.4 g/dL (3.4-5.0); ANION GAP 4 mmol/L (5-15); CHLORIDE 106 mmol/L (98-107); CREATININE 1.01 mg/dL (0.55-1.02)
[2019-06-25 14:05] LABS: ALKALINE PHOSPHATASE 81 U/L (45-117); BILIRUBIN,TOTAL 0.2 mg/dL (0.2-1.0); TOTAL PROTEIN 7.9 g/dL (6.4-8.2); TROPONIN I < 0.015 ng/mL (0.000-0.045)
--- NOTE | 2019-06-25 14:55 | NUR ---
PT RESTING IN [facility]. PT'S AOX4. RESPS EVEN AND UNLABORED. ALL MONITORS IN PLACE. CALL LIGHT WITHIN REACH.
--- NOTE | 2019-06-25 15:36 | NUR ---
WARM BLANCKET GIVEN AT THIS TIME.
[2019-06-25 15:50] VITALS: BP 110/81
--- NOTE | 2019-06-25 16:08 | NUR ---
Patient given discharge instructions and they have confirmed that they understand the instructions. Patient ambulatory with steady gait.
== END 2019-06-25 16:09 | disposition home or self-care (01) ==
LOC: ED 16:00
DX: R07.89 Other chest pain (principal); K21.0 Gastro-esophageal reflux disease with esophagitis; Z90.710 Acquired absence of both cervix and uterus; Z90.721 Acquired absence of ovaries, unilateral
CPT/HCPCS: 36415; 71045; 80053; 83690; 84484; 85025; 93005; 99285

== ENCOUNTER 2019-11-14 18:41 | Emergency (ER) | payer OTHER ==
[~2019-11-14] VITALS: Ht 165.1 cm; Wt 143.3 kg
[2019-11-14 18:46] VITALS: BP 143/90
== END 2019-11-14 20:13 | disposition home or self-care (01) ==
LOC: ED 19:30
DX: K11.5 Sialolithiasis (principal); J02.9 Acute pharyngitis, unspecified
CPT/HCPCS: 99283

== ENCOUNTER 2019-11-16 17:18 | Emergency (ER) | payer OTHER ==
[~2019-11-16] VITALS: Ht 165.1 cm; Wt 141.0 kg
[~2019-11-16 17:18] MED LIST changes: -CETI10TA26 PO; +CETI10TA76 PO; -PANT40TA5 PO; +PANT40TA6 PO
--- NOTE | 2019-11-16 17:27 | NUR ---
THIS RN PRESENT DURING EKG PROCEDURE PERFORMED BY EDTA. PT TOLERATED WITH NO COMPLICATIONS.
[2019-11-16 17:54] LABS: BASOPHILS # (AUTO) 0.03 x10^3/uL (0-0.1); BASOPHILS % (AUTO) 0 % (0-1); EOSINOPHILS # (AUTO) 0.02 x10^3/uL (0-0.4); EOSINOPHILS % (AUTO) 0 % (1-7); LYMPHOCYTES # (AUTO) 1.72 x10^3/uL (1-3.4); LYMPHOCYTES % (AUTO) 13 % (22-44); MD NO; MEAN CORPUSCULAR HEMOGLOBIN 26.2 pg (27.0-34.8); MEAN CORPUSCULAR HGB CONC 32.6 g/dL (32.4-35.8); MEAN PLATELET VOLUME 8.2 fL (7.4-10.4); MONOCYTES # (AUTO) 0.69 x10^3/uL (0.2-0.8); MONOCYTES % (AUTO) 5 % (2-9); NEUTROPHILS # (AUTO) 11.15 x10^3/uL (1.8-6.8); NEUTROPHILS % (AUTO) 82 % (42-75); PLATELET COUNT 320 x10^3/uL (130-400); RED BLOOD COUNT 4.59 x10^6/uL (3.82-5.3); RED CELL DISTRIBUTION WIDTH 16.2 % (9.6-15.2)
[2019-11-16] MEDS ORDERED: LORazepam 2 MG/ML, 1ML ONE (17:58)
[2019-11-16] MEDS ORDERED: LORazepam 2 MG/ML, 1ML IVPush ONE (18:00)
[2019-11-16] MEDS ORDERED: SODIUM CHLORIDE FLUSH 10ML SYR IVF ONE (18:00)
[2019-11-16 18:05] LABS: ALANINE AMINOTRANSFERASE 28 U/L (12-78); ALBUMIN 3.8 g/dL (3.4-5.0); ANION GAP 4 mmol/L (5-15); CALCIUM 8.9 mg/dL (8.5-10.1); CHLORIDE 106 mmol/L (98-107); CREATININE 1.37 mg/dL (0.55-1.02)
[2019-11-16 18:08] LABS: ALKALINE PHOSPHATASE 74 U/L (45-117); BILIRUBIN,TOTAL 0.2 mg/dL (0.2-1.0); TOTAL PROTEIN 7.8 g/dL (6.4-8.2); TROPONIN I < 0.015 ng/mL (0.000-0.045)
--- NOTE | 2019-11-16 19:34 | NUR ---
REPORT RECEIVED FROM CRISTEL COX. PT OK FOR D/C PER ER TORRIE AND JORGE LUIS. PT TEARFUL, STATES "NO ONE HELPED ME WITH ANYTHING." PT ANGRY ABOUT D/C. ER BRADYC AND JORGE LUIS AWARE, NO CHANGES TO PT'S D/C PLAN. PT'S IV D/C'D. PT AMBULATORY UPON D/C, AT SIDE FOR D/C.
[2019-11-16 19:40] VITALS: BP 131/78
== END 2019-11-16 19:42 | disposition home or self-care (01) ==
LOC: ED 17:58
DX: R07.89 Other chest pain (principal); R94.31 Abnormal electrocardiogram [ECG] [EKG]; K21.9 Gastro-esophageal reflux disease without esophagitis; Z90.710 Acquired absence of both cervix and uterus; Z90.722 Acquired absence of ovaries, bilateral
CPT/HCPCS: 36415; 71045; 80053; 84484; 85025; 93005; 96374; 99285; J2060

== ENCOUNTER 2020-03-01 07:24 | Emergency (ER) | payer OTHER ==
[~2020-03-01] VITALS: Ht 165.1 cm; Wt 139.7 kg
[2020-03-01 07:28] VITALS: BP 132/78
[2020-03-01] MEDS ORDERED: ONDANSETRON 2MG/ML, 2ML IVPush ONE (08:00)
[2020-03-01] MEDS ORDERED: SODIUM CHLORIDE 0.9% 1,000ML IVBOLUS ONE (08:00)
[2020-03-01] MEDS ORDERED: ONDANSETRON 2MG/ML, 2ML ONE (08:00)
[2020-03-01] MEDS ORDERED: MORPHINE SULFATE 4 MG/ML, 1ML ONE ×2 (08:00→09:22)
[2020-03-01] MEDS ORDERED: SODIUM CHLORIDE FLUSH 10ML SYR IVF ONE (08:00)
[2020-03-01] MEDS: MORPHINE SULFATE 4 MG/ML, 1ML IVPush PRN ×3 (08:06→09:29)
[2020-03-01 08:08] LABS: BASOPHILS % (AUTO) 0 % (0-1); EOSINOPHILS % (AUTO) 1 % (1-7); LYMPHOCYTES % (AUTO) 21 % (22-44); MEAN CORPUSCULAR HEMOGLOBIN 25.7 pg (27.0-34.8); MEAN CORPUSCULAR HGB CONC 32.2 g/dL (32.4-35.8); MONOCYTES % (AUTO) 6 % (2-9); NEUTROPHILS % (AUTO) 73 % (42-75); PLATELET COUNT 312 x10^3/uL (130-400); RED BLOOD COUNT 5.02 x10^6/uL (3.82-5.3); RED CELL DISTRIBUTION WIDTH 15.9 % (9.6-15.2)
[2020-03-01 08:13] LABS: MD NO
[2020-03-01 08:14] LABS: ALBUMIN 3.7 g/dL (3.4-5.0); ANION GAP 2 mmol/L (5-15); CALCIUM 9.2 mg/dL (8.5-10.1); CHLORIDE 109 mmol/L (98-107); CREATININE 1.13 mg/dL (0.55-1.02)
[2020-03-01] MEDS ORDERED: ZALE10CA PO (08:15)
[2020-03-01] MEDS ORDERED: OMNIPAQUE 350 MG/ML, 150 ML BOTTLE ONE (08:40)
[2020-03-01] MEDS ORDERED: KETOROLAC 30 MG/1 ML ONE (09:25)
[2020-03-01] MEDS ORDERED: KETOROLAC 30 MG/1 ML IVPush ONE (09:30)
[2020-03-01 09:48] LABS: MICROSCOPIC AUTO
--- NOTE | 2020-03-01 10:50 | NUR ---
Patient given discharge instructions and they have confirmed that they understand the instructions. Patient ambulatory with steady gait.
== END 2020-03-01 10:51 | disposition home or self-care (01) ==
LOC: ED 08:04
DX: I88.0 Nonspecific mesenteric lymphadenitis (principal); Z90.710 Acquired absence of both cervix and uterus
CPT/HCPCS: 36415; 74177; 80048; 81001; 82040; 85025; 87086; 96361; 96374; 96375; 96376; 99285; J1885; J2270; J2405; J7030; Q9967

== ENCOUNTER 2020-03-10 11:51 | Emergency (ER) | payer OTHER ==
[~2020-03-10] VITALS: Ht 165.1 cm; Wt 142.1 kg
--- NOTE | 2020-03-10 12:43 | NUR ---
PT OOB AND AMBULATE TO BATHROOM, UPRIGHT STEADY GAIT. INSTRUCTED ON COLLECTION OF CC URINE SAMPLE
[2020-03-10] MEDS ORDERED: ONDANSETRON 2MG/ML, 2ML ONE (12:45)
[2020-03-10] MEDS ORDERED: MORPHINE SULFATE 4 MG/ML, 1ML ONE (12:46)
[2020-03-10] MEDS ORDERED: ONDANSETRON 2MG/ML, 2ML IVPush ONE (13:00)
[2020-03-10] MEDS ORDERED: SODIUM CHLORIDE FLUSH 10ML SYR IVF ONE (13:00)
[2020-03-10] MEDS ORDERED: MORPHINE SULFATE 4 MG/ML, 1ML IVPush PRN (13:00)
--- NOTE | 2020-03-10 13:02 | NUR ---
PT RTD FROM BATHROOM, URINE COLLECTED AND SENT TO LAB. POC DISCUSSED AND QUESTIONS ANSWERED.
[2020-03-10 13:19] LABS: BASOPHILS % (AUTO) 1 % (0-1); EOSINOPHILS % (AUTO) 2 % (1-7); LYMPHOCYTES % (AUTO) 28 % (22-44); MEAN CORPUSCULAR HEMOGLOBIN 25.7 pg (27.0-34.8); MEAN CORPUSCULAR HGB CONC 32.2 g/dL (32.4-35.8); MEAN PLATELET VOLUME 8.1 fL (7.4-10.4); MONOCYTES % (AUTO) 8 % (2-9); NEUTROPHILS % (AUTO) 62 % (42-75); PLATELET COUNT 269 x10^3/uL (130-400); RED BLOOD COUNT 4.66 x10^6/uL (3.82-5.3); RED CELL DISTRIBUTION WIDTH 16.4 % (9.6-15.2)
[2020-03-10 13:24] LABS: MICROSCOPIC AUTO
[2020-03-10 13:25] LABS: MD NO
[2020-03-10 13:28] LABS: ALBUMIN 3.4 g/dL (3.4-5.0); ANION GAP 3 mmol/L (5-15); CALCIUM 9.1 mg/dL (8.5-10.1); CHLORIDE 108 mmol/L (98-107)
[2020-03-10 13:32] LABS: ALANINE AMINOTRANSFERASE 24 U/L (12-78); ALKALINE PHOSPHATASE 70 U/L (45-117); BILIRUBIN,TOTAL 0.2 mg/dL (0.2-1.0); CREATININE 0.94 mg/dL (0.55-1.02); TOTAL PROTEIN 7.4 g/dL (6.4-8.2)
--- NOTE | 2020-03-10 13:57 | NUR ---
OFF FLOOR TO CT
[2020-03-10] MEDS ORDERED: KETOROLAC 30 MG/1 ML IVPush ONE (14:00)
[2020-03-10] MEDS ORDERED: OMNIPAQUE 350 MG/ML, 150 ML BOTTLE ONE (14:12)
[2020-03-10 14:54] VITALS: BP 107/64
--- NOTE | 2020-03-10 15:08 | NUR ---
Patient/Caregiver given discharge instructions and they have confirmed that they understand the instructions. Patient ambulatory with steady gait. PT STATES HER IS WAITING IN THE PARKING LOT TO DRIVE HER HOME
== END 2020-03-10 15:09 | disposition home or self-care (01) ==
LOC: ED 14:52
DX: I88.0 Nonspecific mesenteric lymphadenitis (principal)
CPT/HCPCS: 36415; 74177; 80053; 81001; 83690; 85025; 87086; 96374; 96375; 99285; J2270; J2405; Q9967

== ENCOUNTER 2020-07-03 09:57 | Emergency (ER) | payer OTHER ==
[~2020-07-03] VITALS: Ht 165.1 cm; Wt 140.1 kg
--- NOTE | 2020-07-03 10:17 | NUR ---
Task RN: Midsternal cp with radiation to left shoulder/arm x 1.5 hours. Onset while at rest. Significant social stress lately Ecg obtained, placed on threat monitoring analyst. Piv in place via [facility] Report to primary RNLilly
--- NOTE | 2020-07-03 11:02 | NUR ---
PT UP TO BATHROOM INSTRUCTED PROPER WAY TO OBTAIN UA. GAIT STEADY
[2020-07-03] MEDS ORDERED: KETOROLAC 30 MG/1 ML ONE (11:25)
[2020-07-03 11:30] LABS: BASOPHILS % (AUTO) 0 % (0-1); EOSINOPHILS % (AUTO) 1 % (1-7); LYMPHOCYTES % (AUTO) 24 % (22-44); MEAN CORPUSCULAR HEMOGLOBIN 26.2 pg (27.0-34.8); MEAN PLATELET VOLUME 7.9 fL (7.4-10.4); MONOCYTES % (AUTO) 8 % (2-9); NEUTROPHILS % (AUTO) 67 % (42-75); PLATELET COUNT 131 x10^3/uL (130-400); RED BLOOD COUNT 4.74 x10^6/uL (3.82-5.3)
[2020-07-03] MEDS ORDERED: KETOROLAC 30 MG/1 ML IVPush ONE (11:30)
[2020-07-03 11:34] LABS: MICROSCOPIC NOT IND
--- NOTE | 2020-07-03 11:34 | NUR ---
pt resting comfortably with spouse at bedside. call light within reach. no further needs.
[2020-07-03 11:43] LABS: ALBUMIN 3.5 g/dL (3.4-5.0); ANION GAP 5 mmol/L (5-15); CALCIUM 8.8 mg/dL (8.5-10.1); CHLORIDE 108 mmol/L (98-107)
[2020-07-03 11:46] LABS: ALANINE AMINOTRANSFERASE 20 U/L (12-78); ALKALINE PHOSPHATASE 75 U/L (45-117); BILIRUBIN,TOTAL 0.3 mg/dL (0.2-1.0); CREATININE 0.92 mg/dL (0.55-1.02); TOTAL PROTEIN 7.7 g/dL (6.4-8.2); TROPONIN I < 0.015 ng/mL (0.000-0.045)
[2020-07-03 11:56] LABS: MD SCAN
--- NOTE | 2020-07-03 12:06 | NUR ---
pt states the toradol and xanax have helped her pain. she still feels some tightness but feels "normal".
[2020-07-03 13:00] VITALS: BP 128/80
== END 2020-07-03 13:11 | disposition home or self-care (01) ==
LOC: ED 10:42
DX: F41.1 Generalized anxiety disorder (principal); K21.9 Gastro-esophageal reflux disease without esophagitis; R07.89 Other chest pain; R06.02 Shortness of breath; R94.31 Abnormal electrocardiogram [ECG] [EKG]; J45.909 Unspecified asthma, uncomplicated; Z88.8 Allergy status to other drugs, medicaments and biological substances; Z90.721 Acquired absence of ovaries, unilateral; Z90.710 Acquired absence of both cervix and uterus
CPT/HCPCS: 36415; 71045; 80053; 81003; 84484; 85025; 93005; 96374; 99285; J1885